=== PATIENT | male | born 1985 | race American Indian/Alaskan Native ===

== ENCOUNTER 2020-10-16 12:43 | Emergency (ER) | payer SELFPAY ==
[2020-10-16 13:16] VITALS: BP 138/87
--- NOTE | 2020-10-16 13:17 | Emergency Department Report ---
Chief Complaint: Urogenital-Male Stated Complaint: PENIS/DRAINAGE X 2 DAYS Time Seen by Provider: 10/16/20 13:14 - HPI History of Present Illness: 34-year-old -[place] male patient presents with complaints of penile discharge x2 days. He denies any dysuria/hematuria, penile/testicular pain/swelling/lesions, abdominal pain, fever/chills/sweats, or swollen painful joints. Patient provided with outpatient resources for STD testing and advised to avoid sexual intercourse until he is tested and treated and given further instruction. Heart rate rechecked at 92 bpm. His vitals are normal, he is well-appearing he is stable for discharge home. Discussed strict return precautions in detail with patient who verbalized understanding. MSE screening note: Focused history and physical exam performed. Due to findings the following was ordered: ED Disposition for MSE Condition: Stable ED Physical Exam - General Limitations: No Limitations General appearance: alert, in no apparent distress - Head Head exam: Present: atraumatic, normocephalic - Eye Eye exam: Present: normal appearance. Absent: scleral icterus - Respiratory Respiratory exam: Present: normal lung sounds bilaterally. Absent: respiratory distress - Cardiovascular Cardiovascular Exam: Present: regular rate - GI/Abdominal GI/Abdominal exam: Present: soft. Absent: tenderness - Extremities Exam Extremities exam: Present: full ROM. Absent: joint swelling - Back Exam Back exam: Present: full ROM - Neurological Exam Neurological exam: Present: alert, oriented X3, normal gait - Psychiatric Psychiatric exam: Present: normal affect, normal mood - Skin Skin exam: Present: warm, dry, intact, normal color. Absent: rash ED Review of Systems ROS: Stated complaint: PENIS/DRAINAGE X 2 DAYS Other details as noted in HPI Constitutional: denies: diaphoresis, fever, malaise Gastrointestinal: denies: abdominal pain Genitourinary: denies: urgency, dysuria, hematuria Musculoskeletal: denies: joint swelling, arthralgia
== END 2020-10-16 15:43 | disposition home or self-care (01) ==
LOC: ED 12:43
DX: R36.9 Urethral discharge, unspecified (principal); Z53.21 Procedure and treatment not carried out due to patient leaving prior to being seen by health care provider
CPT/HCPCS: 99281

== ENCOUNTER 2021-05-19 00:43 | Emergency (ER) | payer OTHER ==
[2021-05-19] MEDS ORDERED: KETOROLAC 30 MG/1 ML INJ IV ONE (00:46)
[2021-05-19 01:21] VITALS: BP 112/78
[2021-05-19 01:23] LABS: Basophils # (Auto) 0.2 K/mm3 (0.0-0.1); Basophils % (Auto) 2.6 % (0.0-1.8); Eosinophils # (Auto) 0.1 K/mm3 (0.0-0.4); Eosinophils % (Auto) 1.6 % (0.0-4.3); Hematocrit 46.8 % (35.5-45.6); Hemoglobin 16.1 gm/dl (11.8-15.2); Lymphocytes # (Auto) 3.1 K/mm3 (1.2-5.4); Lymphocytes % (Auto) 48.2 % (13.4-35.0); Mean Corpuscular HGB Conc 34 % (32-34); Mean Corpuscular Volume 94 fl (84-94); Monocytes # (Auto) 0.5 K/mm3 (0.0-0.8); Monocytes % (Auto) 7.3 % (0.0-7.3); Platelet Count 263 K/mm3 (140-440); Red Cell Distribution Width 14.1 % (13.2-15.2)
[2021-05-19 01:25] LABS: BUN/Creatinine Ratio 8; Blood Urea Nitrogen 11 mg/dL (9-20); Calcium 9.3 mg/dL (8.4-10.2); Hemolysis Index 6
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
== END 2021-05-19 02:43 | disposition home or self-care (01) ==
LOC: ED 00:43
DX: S81.831A Puncture wound without foreign body, right lower leg, initial encounter (principal); Z79.899 Other long term (current) drug therapy; W34.09XA Accidental discharge from other specified firearms, initial encounter; Y93.89 Activity, other specified; Y92.89 Other specified places as the place of occurrence of the external cause; Y99.8 Other external cause status
CPT/HCPCS: 36415; 73590; 80048; 85025; 96365; 96375; 99284; J0690; J1885